=== PATIENT | female | born 1955 | race Caucasian/White ===

== ENCOUNTER → 2021-09-23 10:41 | Outpatient (CLI) | payer MEDICARE, SELFPAY ==
--- NOTE | 2021-09-23 10:46 | DI.MRI.S_ITS ---
PROCEDURE: MR CERVICAL SPINE WO CON INDICATIONS: Cervicalgia TECHNIQUE: Noncontrast sagittal T1 spin echo and T2 fast spin echo, sagittal STIR, foraminal oblique sagittal T2 fast spin echo, and axial gradient echo or T2 fast spin echo through the cervical spine. COMPARISON: None. FINDINGS: Image quality: Excellent. Alignment and Curvature: Mild degenerative retrolisthesis of C5 on C6 measuring 3 mm. Trace degenerative anterolisthesis of C4 on C5. Trace degenerative retrolisthesis of C3 on C4. Bone Marrow: Marrow demonstrates normal overall signal. Spinal Cord: Visualized spinal cord has normal size and signal. No cerebellar tonsillar herniation. Paraspinous Soft Tissues: No paravertebral masses. Prevertebral soft tissues are normal in thickness. C2-C3: Minimal central posterior disc protrusion without canal stenosis. Bilateral facet hypertrophy, right greater than left. No significant foraminal narrowing. C3-C4: Broad-based posterior disc osteophyte complex flattening the cord. AP diameter of the canal is 9.5 mm. Bilateral prominent uncovertebral joint hypertrophy. Severe bilateral foraminal narrowing, with bilateral foraminal C4 nerve root impingement. C4-C5: Diffuse posterior disc plus osteophyte. Central canal measures 10.2 cm. Disc osteophyte complex in the right lateral recess impinges on the ventral nerve root of the right C6 nerve. There is prominent left facet hypertrophy. There is bilateral facet hypertrophy. There is moderate to severe right foraminal narrowing with right foraminal C5 nerve root impingement. C5-C6: Diffuse posterior disc osteophyte complex, eccentric to the right. AP diameter of the canal is 7.4 mm. Bilateral uncovertebral joint hypertrophy. Bilateral facet hypertrophy. Moderate to severe right foraminal narrowing with right foraminal C6 nerve root impingement. Moderate left foraminal narrowing with flattening deformity on the exiting left C6 nerve root. C6-C7: Posterior disc plus osteophyte, eccentric to the left. AP diameter of the canal is 8.1 mm. Right lateral recess and foraminal disc osteophyte complex as well as right facet hypertrophy results in severe right foraminal narrowing with right foraminal C7 nerve root impingement. There is moderate to severe left foraminal narrowing with left foraminal C7 nerve root impingement. C7-T1: Disc bulge. No canal stenosis. No significant foraminal stenosis. IMPRESSION: 1. There is severe diffuse cervical spondylitic change. 2. Multilevel canal stenosis, severe and C5-C6 and moderate at C6-C7. 3. Significant multilevel foraminal narrowing as described above. Dictated by: Hitesh Garibay M.D. on 09/26/2021 at 10:09 Approved by: Hitesh Garibay M.D. on 09/26/2021 at 10:19
== END ==
PROVIDERS: Referring Provider Physical Medicine & Rehabilitation Pain Medicine; Visit Provider Physical Medicine & Rehabilitation Pain Medicine
DX: M54.2 Cervicalgia (principal); M48.02 Spinal stenosis, cervical region
CPT/HCPCS: 72141